=== PATIENT | female | born 1990 | race Caucasian/White ===

== ENCOUNTER 2016-11-25 12:27 | Emergency (ER) | payer BC, MEDICAID ==
[~2016-11-25 12:27] MED LIST: MOTRIN-DPS800 MG PO; PRENATAL VIT1 TAB PO; TUMS DPS500 MG PO; TYLENOL #3 DPS1 TAB PO
== END 2016-11-25 12:39 | disposition left against medical advice (07) ==
LOC: ER 12:27
DX: Z53.21 Procedure and treatment not carried out due to patient leaving prior to being seen by health care provider (principal)